=== PATIENT | female | born 1975 | race Caucasian/White ===

== ENCOUNTER 2020-04-12 17:52 | Emergency (ER) | payer OTHER ==
[~2020-04-12 17:52] MED LIST: BENTYL10 MG PO; DULOXETINE HCL60 MG PO; ELAVIL25 MG PO; FIORICET1 EACH PO; FLEXERIL10 MG PO; GABAPENTIN 100100 MG PO; LANSOPRAZOLE30 MG PO; MEDROL 4MG DOSEP4 MG PO; PYRIDIUM100 MG PO; VOLTAREN **OUT75 MG PO; ZOFRAN4 MG PO; ZOFRAN8 MG PO
[2020-04-12] MEDS ORDERED: BACTRIM DS TAB1 EACH PO (18:26)
== END 2020-04-12 18:53 | disposition home or self-care (01) ==
LOC: FER 17:52
DX: N76.4 Abscess of vulva (principal); J45.909 Unspecified asthma, uncomplicated; E66.9 Obesity, unspecified; F17.200 Nicotine dependence, unspecified, uncomplicated; Z88.0 Allergy status to penicillin; Z88.5 Allergy status to narcotic agent
CPT/HCPCS: 99283

== ENCOUNTER 2021-02-16 22:43 | Emergency (ER) | payer OTHER | END 2021-02-17 03:56 | disposition home or self-care (01) | LOC: FER 22:43 | DX: M54.50 Low back pain, unspecified (principal); M25.531 Pain in right wrist; M25.562 Pain in left knee; E11.9 Type 2 diabetes mellitus without complications; Z88.6 Allergy status to analgesic agent; Z88.2 Allergy status to sulfonamides; V43.52XA Car driver injured in collision with other type car in traffic accident, initial encounter; Y92.410 Unspecified street and highway as the place of occurrence of the external cause ==

== ENCOUNTER 2021-09-22 14:23 | Emergency (ER) | payer MEDICARE, OTHER ==
[~2021-09-22 14:23] MED LIST changes: +BACTRIM DS TAB1 EACH PO
[2021-09-22 16:45] LABS: BILIRUBIN NEGATIVE (NEGATIVE); BLOOD NEGATIVE Ery/uL (NEGATIVE); CLARITY CLEAR (CLEAR); COLOR YELLOW (YELLOW); GLUCOSE (U) NORMAL (NORMAL); LEUKOCYTES NEGATIVE Leu/uL (NEGATIVE); NITRITE NEGATIVE (NEGATIVE); PROTEIN NEGATIVE (NEGATIVE); UROBILINOGEN 0.2 mg/dL (0.2-1.0)
[2021-09-22 17:24] LABS: BASOPHIL 0.4 % (0-2); EOSINOPHIL 0.7 % (0-5); HCT 42.4 % (37.0-47.0); HGB 13.8 g/dl (12.5-16.0); LYMPHOCYTE 20.7 % (15-48); MCH 31.4 pg (25.0-31.0); MCHC 32.5 g/dL (32.0-36.0); MCV 96.6 fL (78.0-100.0); MONOCYTE 5.7 % (0-12); MPV 10.7 fL (6.0-9.5); NEUTROPHIL 71.7 % (41-80); NRBC 0; PLT 287 K/uL (150-400); RBC 4.39 M/uL (4.20-5.40); RDW 14.6 % (11.5-14.0); WBC 13.8 K/uL (4.0-10.5)
[2021-09-22 17:33] LABS: ALBUMIN 3.4 g/dL (3.4-5.0); BILIRUBIN - TOTAL 0.2 mg/dL (0.2-1.0); BUN/CREAT RATIO (CALC) 11.9 RATIO; CREATININE 0.59 mg/dL (0.51-0.95); GLOBULIN (CALCULATION) 3.9 g/dL; POTASSIUM 3.9 mmol/L (3.5-5.1); TOTAL PROTEIN 7.3 g/dL (6.4-8.2)
[2021-09-22] MEDS ORDERED: PREDNISONE 20MG20 MG PO (19:32)
[2021-09-22] MEDS ORDERED: TESSALON PERLE100 MG PO (19:32)
== END 2021-09-22 20:00 | disposition home or self-care (01) ==
LOC: FER 14:23
PROVIDERS: Physician Assistant
DX: J44.1 Chronic obstructive pulmonary disease with (acute) exacerbation (principal); M54.50 Low back pain, unspecified; E11.9 Type 2 diabetes mellitus without complications; I10 Essential (primary) hypertension; F17.210 Nicotine dependence, cigarettes, uncomplicated; Z88.0 Allergy status to penicillin; Z88.5 Allergy status to narcotic agent; Z79.899 Other long term (current) drug therapy
CPT/HCPCS: 36415; 71046; 80053; 81001; 83690; 85025